=== PATIENT | male | born 1945 | race Caucasian/White ===

== ENCOUNTER 2022-07-11 09:07 | Outpatient (CLI) | payer MEDICARE, BC | END 2022-07-11 23:59 | disposition home or self-care (01) | LOC: CARD DIAG 09:07 | PROVIDERS: ATTEND Internal Medicine Cardiovascular Disease | DX: I08.8 Other rheumatic multiple valve diseases (principal); I10 Essential (primary) hypertension | CPT/HCPCS: 93306 ==

== ENCOUNTER 2022-11-02 11:44 | Day surgery (SDC) | payer MEDICARE, BC ==
[2022-11-01 11:10] LABS: BASOPHILS % (AUTO) 0.1 % (0-1); EOSINOPHILS # (AUTO) 0.2 X10'3 (0-0.9); EOSINOPHILS % (AUTO) 3.1 % (0-6); HEMATOCRIT 43.5 % (42.0-52.0); HEMOGLOBIN 14.6 g/dl (14.0-17.9); LYMPHOCYTES # (AUTO) 0.9 X10'3 (1.1-4.8); LYMPHOCYTES % (AUTO) 16.1 % (21-51); MEAN CORPUSCULAR HEMOGLOBIN 30.7 PG (27.0-31.0); MEAN CORPUSCULAR HGB CONC 33.5 g/dL (33.0-36.5); MEAN CORPUSCULAR VOLUME 91.5 FL (78-98); MEAN PLATELET VOLUME 7.9 FL (7.4-10.4); MONOCYTES # (AUTO) 0.6 X10'3 (0-0.9); MONOCYTES % (AUTO) 10.6 % (2-12); NEUTROPHILS # (AUTO) 3.9 X10'3 (1.8-7.7); NEUTROPHILS % (AUTO) 70.1 % (42-75); PLATELET COUNT 211 X10'3 (140-440); RED BLOOD COUNT 4.75 X10'6 (4.70-6.10); RED CELL DISTRIBUTION WIDTH 14.1 % (11.5-14.5); WHITE BLOOD COUNT 5.6 X10'3 (4.5-11.0)
[2022-11-01 11:15] LABS: ALBUMIN 3.9 G/DL (3.4-5.0); ANION GAP 7 (8-16); BLOOD UREA NITROGEN 14 MG/DL (7-18); BUN/CREATININE RATIO 13.9 (10.0-20.0); CALCIUM 8.8 MG/DL (8.5-10.1); CHLORIDE 103 MMOL/L (99-107); CREATININE 1.01 MG/DL (0.60-1.10); GLUCOSE 80 MG/DL (70-104); POTASSIUM 4.5 MMOL/L (3.5-5.1); SODIUM 140 MMOL/L (135-145); TOTAL CARBON DIOXIDE 29.9 MMOL/L (24-32); eGFR 71 ML/MIN
[2022-11-01 11:20] LABS: APTT 27 SECONDS (22-32)
[2022-11-02] VITALS (9 sets, daily range): BP systolic 110–147; BP diastolic 56–80
[~2022-11-02] VITALS: Ht 175.3 cm; Wt 85.2 kg
[~2022-11-02 11:44] MED LIST: ATOR40TA7 PO; BUPR300T53 PO; CLOP-32 PO; ESCI20TA PO; LOSA25TA96 PO; amlodipine
[2022-11-02] MEDS ORDERED: diphenhydrAMINE 25mg capsule PO PRN (12:10)
[2022-11-02] MEDS ORDERED: normal saline 1,000 ML IV SCH (12:10)
[2022-11-02] MEDS ORDERED: LORazepam 0.5 MG tablet PO PRN (12:10)
[2022-11-02] MEDS ORDERED: ASPI-1265 PO (12:13)
[2022-11-02] MEDS ORDERED: nitroGLYCERIN-Tridil 50MG/D5W 250 ML IV ONE (16:01)
[2022-11-02] MEDS ORDERED: verapamil 2.5 mg/ml inj IV ONE (16:01)
[2022-11-02] MEDS ORDERED: LIDOcaine 1% (10mg/ml) 2ml vial ONE (16:01)
[2022-11-02] MEDS ORDERED: heparin 1,000unit/ml 10ml vial 10 ML ONE (16:02)
[2022-11-02] MEDS ORDERED: midazolam 1 mg/ML 2ml injection ONE (16:02)
[2022-11-02] MEDS ORDERED: fentaNYL/PF 50MCG/1 ML 2ML syringe ONE (16:02)
[2022-11-02] MEDS ORDERED: iohexol 350MG/ML 100ml bottle IV ONE ×2 (16:02→17:15)
[2022-11-02] MEDS ORDERED: iohexol 350 MG/ML 50ML vial IV ONE (16:02)
[2022-11-02] MEDS ORDERED: heparin 25,000 UNIT/250ml bag 250 ML IV ONE (16:46)
[2022-11-02] MEDS ORDERED: clopidogrel 300mg tablet ONE (17:26)
[2022-11-02] MEDS ORDERED: normal saline 1000ml 1,000 ML IV SCH (18:00)
[2022-11-02] MEDS ORDERED: clopidogrel 300mg tablet PO ONE (18:00)
[2022-11-03] MEDS ORDERED: clopidogrel 75mg tablet PO SCH (08:00)
== END 2022-11-02 20:45 | disposition home or self-care (01) ==
LOC: SSTAY O 11:44
PROVIDERS: ATTEND Internal Medicine Cardiovascular Disease
DX: R94.39 Abnormal result of other cardiovascular function study (principal); I25.10 Atherosclerotic heart disease of native coronary artery without angina pectoris; I10 Essential (primary) hypertension; E78.5 Hyperlipidemia, unspecified; Z86.73 Personal history of transient ischemic attack (TIA), and cerebral infarction without residual deficits; Z87.891 Personal history of nicotine dependence; Z79.01 Long term (current) use of anticoagulants; Z72.89 Other problems related to lifestyle; Z79.899 Other long term (current) drug therapy; Z82.49 Family history of ischemic heart disease and other diseases of the circulatory system
CPT/HCPCS: 36415; 76937; 80048; 85025; 85347; 85610; 85730; 93005; 99152; 99153; A6258; C1751; C1769; C1874; C1892; C9600; J1644; J2250; J3010; J3490; J7030; Q0163; Q9967; A6402; C1725; C1894